=== PATIENT | female | born 1950 | race Caucasian/White ===

== ENCOUNTER → 2016-11-26 | Outpatient (CLI) | payer MEDICARE ==
[~2016-11-26] MED LIST: ADIPEX-P37.5 MG PO; MOBIC 7.5MG7.5 MG PO
== END ==
LOC: MC.RAD 13:20
DX: Z12.31 Encounter for screening mammogram for malignant neoplasm of breast (principal)

== ENCOUNTER → 2020-04-12 | Outpatient (CLI) | payer MEDICARE | LOC: COL.RAD 14:41 | DX: R10.30 Lower abdominal pain, unspecified (principal) ==

== ENCOUNTER → 2020-10-05 | Outpatient (CLI) | payer MEDICARE | LOC: COL.RAD 12:56 | DX: N18.32 Chronic kidney disease, stage 3b (principal); N26.1 Atrophy of kidney (terminal) ==

== ENCOUNTER → 2021-06-03 | Outpatient (CLI) | payer MEDICARE ==
[2021-06-03 08:46] LABS: CALCIUM 8.4 mg/dL (8.4-10.2); CREATININE, serum 1.11 mg/dL (0.57-1.11); POTASSIUM 3.5 mmol/L (3.5-4.5)
== END ==
LOC: COL.LAB 08:13
PROVIDERS: Internal Medicine Nephrology
DX: N18.32 Chronic kidney disease, stage 3b (principal)

== ENCOUNTER 2021-12-24 08:58 | Emergency (ER) | payer MEDICARE ==
[~2021-12-24] VITALS: Ht 167.6 cm; Wt 75.0 kg
[2021-12-24 09:25] VITALS: TEMP 97.7
[2021-12-24 10:55] LABS: BASO % 0.7 % (0.0-2.0); EOS # 0.2 K/mm3 (0.0-0.7); EOS % 3.6 % (0.0-4.0); GRAN % 52.1 % (42.2-75.2); HEMATOCRIT 37.5 % (37.0-47.0); HEMOGLOBIN 12.2 g/dl (12.5-16.0); LYMPH # 2.1 K/mm3 (1.2-3.4); LYMPH % 36.2 % (20.0-51.0); MEAN CELL VOLUME 87 fl (80.0-100.0); MEAN CORPUSCULAR HEMOGLOBIN 28 pg (27-31); MEAN CORPUSCULAR HGB CONC 33 g/dl (33.0-37.0); MONO # 0.4 K/mm3 (0.1-0.6); MONO % 7.2 % (1.7-9.3); PLATELET COUNT 176 K/mm3 (130-400); RED BLOOD COUNT 4.32 M/mm3 (4.10-5.30); REDCELL DISTRIBUTION WIDTH-CV 12.9 % (11.5-14.5)
[2021-12-24 11:09] LABS: ALANINE AMINOTRANSFERASE 13 U/L (0-55); ALBUMIN 3.4 gm/dL (3.4-4.8); ALKALINE PHOSPHATASE 103 U/L (40-150); ANION GAP 8 mmol/L (7-16); AST,SGOT 12 U/L (5-34); BILIRUBIN,TOTAL 0.5 mg/dL (0.2-1.2); BLOOD UREA NITROGEN 14 mg/dL (10-20); CALCIUM 8.7 mg/dL (8.4-10.2); CARBON DIOXIDE 26 mmol/L (23-31); CHLORIDE 109 mmol/L (98-107); CREATININE, serum 1.09 mg/dL (0.57-1.11); GLUCOSE 97 mg/dL (70-99); SODIUM 143 mmol/L (136-145); TOTAL PROTEIN 6.8 gm/dL (6.2-8.1)
[2021-12-24 11:24] LABS: TROPONIN-I < 0.010 ng/mL (0.00-0.033)
[2021-12-24 12:17] VITALS: BP 174/86; PULSE 59
== END 2021-12-24 12:25 | disposition home or self-care (01) ==
LOC: COL.ER 08:58
PROVIDERS: Nurse Practitioner
DX: I10 Essential (primary) hypertension (principal)

== ENCOUNTER 2021-12-26 16:22 | Emergency (ER) | payer MEDICARE ==
[~2021-12-26] VITALS: Ht 165.1 cm; Wt 75.0 kg
[2021-12-26] MEDS ORDERED: PRINIVIL5 MG PO (17:14)
[2021-12-26] MEDS ORDERED: LEXAPRO 10MG10 MG PO (17:15)
[2021-12-26 18:10] VITALS: BP 166/81; PULSE 60
== END 2021-12-26 18:11 | disposition home or self-care (01) ==
LOC: COL.ER 16:22
DX: I10 Essential (primary) hypertension (principal)

== ENCOUNTER → 2023-09-02 | Outpatient (CLI) | payer MEDICARE ==
[~2023-09-02] MED LIST changes: +LEXAPRO 10MG10 MG PO; +PRINIVIL5 MG PO
== END ==
LOC: MC.RAD 07:33
DX: N63.14 Unspecified lump in the right breast, lower inner quadrant (principal); Z80.3 Family history of malignant neoplasm of breast